=== PATIENT | male | born 1945 | race Caucasian/White ===

== ENCOUNTER 2018-03-27 15:04 | Emergency (ER) | payer OTHER ==
[~2018-03-27] VITALS: Ht 188 cm; Wt 108.9 kg
[2018-03-27] MEDS ORDERED: ATORVASTATIN CA10 MG (15:41)
[2018-03-27] MEDS ORDERED: UROXATRAL10 MG (15:42)
[2018-03-27] MEDS ORDERED: VITAMIN A AND1 EACH (15:42)
[2018-03-27] MEDS ORDERED: ASPIRIN1 GM (15:42)
[2018-03-27] MEDS ORDERED: METOPROLOL ER-1 EAC1 (15:42)
[2018-03-27] MEDS ORDERED: ALTACE1.25 MG (15:42)
[2018-03-27] MEDS ORDERED: FINASTERIDE5 MG (15:43)
[2018-03-27] MEDS ORDERED: KEYTRUDA100 MG/4 M (15:43)
== END 2018-03-27 18:48 | disposition home or self-care (01) ==
LOC: ER 15:04
DX: R33.8 Other retention of urine (principal); N39.0 Urinary tract infection, site not specified